=== PATIENT | male | born 1980 | race Caucasian/White ===

== ENCOUNTER 2022-08-08 13:45 | Emergency (ER) | payer SELFPAY ==
[2022-08-08 14:04] VITALS: RESP 18; TEMP 98.2
[2022-08-08] MEDS ORDERED: methylPREDNISolone SOD SUCCI 125 MG/2 ML VIAL IM ONE (15:59)
[2022-08-08] MEDS ORDERED: LIDOCAINE 5% PATCH TOPICAL STA (16:00)
[2022-08-08] MEDS ORDERED: ACETAMINOPHEN TAB 500 MG TAB PO STA (16:00)
--- NOTE | 2022-08-08 16:03 | ED ---
Back Pain HPI - General Chief Complaint: Back Pain/Injury Stated Complaint: back pain Time Seen by Provider: 08/08/22 15:49 Source: patient Limitations: no limitations - History of Present Illness Initial Comments: Patient is a 41-year-old male who presents to emergency department for back pain. Patient reports pain in his left lower back which radiates to his left buttock and down his thigh with tingling. He denies injury but does admit to doing yard work this week which required lifting and bending. He has history of sciatica states this feels similar. He has not had any issues with sciatica in several years. Took motrin with some relief. Denies saddle anesthesia, leg weakness, loss of bowel or bladder function. Denies burning with urination, blood in the urine. - Related Data Previous Rx's Medication Instructions Recorded Cyclobenzaprine [Flexeril] 10 mg PO TID PRN #15 tab 08/08/22 Ibuprofen [Motrin] 800 mg PO Q8HR PRN #30 tab 08/08/22 Lidocaine 5% Patch [Lidoderm 5% 1 patch TOPICAL DAILY PRN #7 patch 08/08/22 Patch] predniSONE 50 mg PO DAILY #5 tab 08/08/22 Allergies Allergy/AdvReac Type Severity Reaction Status Date / Time No Known Allergies Allergy Verified 08/08/22 14:04 Review of Systems ROS Statement: Those systems with pertinent positive or pertinent negative responses have been documented in the HPI. ROS Other: All systems not noted in ROS Statement are negative. Past Medical History Past Medical History: No Reported History Past Surgical History: Hernia Repair Smoking Status: Former smoker Past Alcohol Use History: None Reported Past Drug Use History: Marijuana General Exam Limitations: no limitations General appearance: alert, in no apparent distress Respiratory exam: Present: normal lung sounds bilaterally. Absent: respiratory distress, wheezes, rales, rhonchi, stridor Cardiovascular Exam: Present: regular rate, normal rhythm, normal heart sounds. Absent: systolic murmur, diastolic murmur, rubs, gallop, clicks Back exam: Present: normal inspection, full ROM. Absent: CVA tenderness (R), CVA tenderness (L), paraspinal tenderness Neurological exam: Present: alert, oriented X3, CN II-XII intact Expanded Sensory exam: Upper Extremity Light Touch: Normal, Lower Extremity Light Touch: Normal Motor strength exam: RUE: 5, LUE: 5, RLE: 5, LLE: 5 Psychiatric exam: Present: normal affect, normal mood Skin exam: Present: warm, dry, intact, normal color. Absent: rash Course Vital Signs 08/08/22 08/08/22 14:02 16:22 Temperature 98.2 F 98.2 F Pulse Rate 70 58 L Respiratory 18 18 Rate Blood Pressure 164/106 168/94 O2 Sat by Pulse 98 97 Oximetry Medical Decision Making - Medical Decision Making Was pt. sent in by a medical professional or institution (, SANDY, COMBUSTION ANALYST, urgent care, hospital, or shelter...) When possible be specific @ -No Did you speak to anyone other than the patient for history (EMS, parent, family, police, friend...)? What history was obtained from this source @ -No Did you review nursing and triage notes (agree or disagree)? Why? @ -I reviewed and agree with nursing and triage notes Were old charts reviewed (outside hosp., previous admission, EMS record, old EKG, old radiological studies, urgent care reports/EKG's, shelter records)? Report findings @ -No old charts were reviewed Differential Diagnosis (chest pain, altered mental status, abdominal pain women, abdominal pain men, vaginal bleeding, weakness, fever, dyspnea, syncope, headache, dizziness, GI bleed, back pain, seizure, CVA, palpatations, mental health)? @ -Cauda equina, mechanical back pain, lumbar radiculopathy EKG interpreted by me (3pts min.). @ -None. X-rays interpreted by me (1pt min.). @ -None done CT interpreted by me (1pt min.). @ -None done U/S interpreted by me (1pt. min.). @ -None done What testing was considered but not performed or refused? (CT, X-rays, U/S, labs)? Why? @ -Considered imaging mother no midline tenderness. No signs or symptoms of cauda equina What meds were considered but not given or refused? Why? @ -None Did you discuss the management of the patient with other professionals (professionals i.e. SANDY Terry, COMBUSTION ANALYST, lab, RT, psych nurse, social services, senior python developer, teacher, community service patrol officer, upper caser)? Give summary @ -No Was smoking cessation discussed for >3mins.? @ -No Was critical care preformed (if so, how long)? @ -No Were there social determinants of health that impacted care today? How? (Homelessness, low income, unemployed, alcoholism, drug addiction, transportation, low edu. Level, literacy, decrease access to med. care, shelter, rehab)? @ -No Was there de-escalation of care discussed even if they declined (Discuss DNR or withdrawal of care, Hospice)? DNR status @ -No What co-morbidities impacted this encounter? (DM, HTN, Smoking, COPD, CAD, Cancer, CVA, ARF, Chemo, Hep., AIDS, mental health diagnosis, sleep apnea, morbid obesity)? @ -None Was patient admitted / discharged? Hospital course, mention meds given and route, prescriptions, significant lab abnormalities, going to OR and other pertinent info. @ -Discharged. Clinical presentation consistent with sciatica. No signs or symptoms of cauda equina. Patient will be discharged with prednisone and pain management. He is referred to supply specialist Undiagnosed new problem with uncertain prognosis? @ -No Drug Therapy requiring intensive monitoring for toxicity (Heparin, Nitro, Insulin, Cardizem)? @ -No Were any procedures done? @ -No Diagnosis/symptom? @ -sciatic leg pain Acute, or Chronic, or Acute on Chronic? @ -acute Uncomplicated (without systemic symptoms) or Complicated (systemic symptoms)? @ -uncomplicated Side effects of treatment? @ -[No] Exacerbation, Progression, or Severe Exacerbation? @ -[No] Poses a threat to life or bodily function? How? (Chest pain, USA, MS, pneumonia, PE, COPD, DKA, ARF, appy, cholecystitis, CVA, Diverticulitis, Homicidal, Suicidal, threat to staff... and all critical care pts) @ -No is my attending Disposition Clinical Impression: Sciatic leg pain Disposition: HOME SELF-CARE Condition: Good Instructions (If sedation given, give patient instructions): Sciatica (ED) Additional Instructions: Take medication as directed. Start prednisone tomorrow as he got a steroid today in the emergency department. Do not drink alcohol or operate machinery while taking Flexeril as aching cause drowsiness. Follow-up with supply specialist in 1-2 days. Return to the emergency department if you experience new, concerning, or worsening symptoms Prescriptions: Cyclobenzaprine [Flexeril] 10 mg PO TID PRN #15 tab PRN Reason: Muscle Spasm Lidocaine 5% Patch [Lidoderm 5% Patch] 1 patch TOPICAL DAILY PRN #7 patch PRN Reason: Pain Ibuprofen [Motrin] 800 mg PO Q8HR PRN #30 tab PRN Reason: Pain predniSONE 50 mg PO DAILY #5 tab Is patient prescribed a controlled substance at d/c from ED?: No Referrals: None,Stated [Primary Care Provider] - 1-2 days Teofilo Candelaria DO [Doctor of Osteopathic Medicine] - 1-2 days
[2022-08-08 16:26] VITALS: BP 168/94; PULSE 58
== END 2022-08-08 16:29 | disposition home or self-care (01) ==
LOC: EC 13:45
DX: M54.42 Lumbago with sciatica, left side (principal); F12.90 Cannabis use, unspecified, uncomplicated; Z87.891 Personal history of nicotine dependence
CPT/HCPCS: 99283; 96372; J2930